=== PATIENT | male | born 1940 | race Caucasian/White ===

== ENCOUNTER 2018-11-24 04:48 | Observation (INO) | payer MEDICARE, BC ==
[2018-11-24] MEDS ORDERED: Nitroglycerin 2% Ointment 1 INCH/1 GM Packet ONE (05:01)
[2018-11-24 05:31] LABS: #Basophils 0.1 thou/uL (0.0-0.2); #Eosinphils 0.2 thou/uL (0.0-0.7); #Lymphocytes 1.9 thou/uL (1.20-3.40); #Monocytes 0.8 thou/uL (0.11-0.59); #Neutrophils 4.3 thou/uL (1.40-6.50); %Basophils 1.2 % (0.0-1.0); %Eosinophils 2.5 % (0.0-10.0); %Lymphocytes 26.2 % (21.0-51.0); %Monocytes 10.6 % (0.0-10.0); %Neutrophils 59.5 % (42.0-75.0); Hemoglobin 12.3 g/dL (14.0-18.0); Mean Corpuscular HGB CONC 32.1 g/dL (32.0-36.0); Mean Corpuscular Hemoglobin 31.6 pg (27.0-31.0); Mean Corpuscular Volume 98.2 fL (78.0-98.0); Mean Platelet Volume 6.9 fL (7.4-10.4); Platelet Count 235 thou/uL (130-400); RBC Distribution Width 11.5 % (11.5-14.5); Red Blood Cell (RBC) Count 3.89 mill/uL (4.70-6.10); White Blood Cell (WBC) Count 7.2 thou/uL (4.8-10.8)
[2018-11-24 05:55] LABS: ALT (SGPT) 22 U/L (8-55); AST (SGOT) 20 U/L (5-34); Albumin 4.3 g/dL (3.4-4.8); Alkaline Phosphatase 88 U/L (40-150); Anion Gap 12 mmol/L (10-20); BUN (Urea Nitrogen) 25 mg/dL (8.4-25.7); Bilirubin, Total 0.4 mg/dL (0.2-1.2); CK (CPK) 85 U/L (30-200); Calc. Creatinine Clearance 0 mL/min (70-130); Calcium 9.1 mg/dL (7.8-10.44); Carbon Dioxide 24 mmol/L (23-31); Chloride 107 mmol/L (98-107); Estimated GFR-MDRD 89; Globulin 2.7 g/dL (2.4-3.5); Glucose 124 mg/dL (83-110); Lipase 40 U/L (8-78); Potassium 3.9 mmol/L (3.5-5.1); Sodium 139 mmol/L (136-145)
[2018-11-24 07:15] VITALS: BMI 28.3
[2018-11-24] MEDS ORDERED: Ondansetron PF 4 MG/2 ML Vial IVP PRN (07:20)
[2018-11-24] MEDS ORDERED: Ondansetron ODT 4 MG TAB SL PRN (07:20)
[2018-11-24] MEDS ORDERED: Acetaminophen 325 MG TAB PO PRN (07:20)
--- NOTE | 2018-11-24 08:15 | RAD ---
FExam: Chest one view History: chest pain x30 minutes Comparison: 02/03/2004 FINDINGS: Cardiac silhouette: Normal Pulmonary vessels: Normal Costophrenic angles: Clear LUNGS: No masses or consolidation. Pneumothorax: None Osseous abnormalities: None IMPRESSION: No acute cardiopulmonary process.
[2018-11-24] MEDS ORDERED: CARVEDILOL PHOSPHATE 20 MG PO SCH (09:00)
[2018-11-24] MEDS ORDERED: Aspirin Chewable 81 MG TAB PO SCH (09:00)
[2018-11-24] MEDS ORDERED: Lisinopril 20 MG TAB PO SCH (09:00)
[2018-11-24] MEDS ORDERED: Non-Formulary Item 1 EACH (Ezetimibe/Simvastatin [Vytorin] 1 TABLET) PO SCH (09:00)
[2018-11-24] MEDS ORDERED: Aspirin 325 mg Enteric Coated Tablet PO SCH (09:00)
[2018-11-24] MEDS ORDERED: Ezetimibe 10 MG TAB PO SCH (09:00)
[2018-11-24] MEDS ORDERED: Aspirin 81 mg Enteric Coated Tablet PO SCH (09:00)
[2018-11-24] MEDS ORDERED: Carvedilol 6.25 MG TAB PO SCH (09:00)
[2018-11-24] MEDS ORDERED: Simvastatin 40 MG TAB PO SCH (09:00)
[2018-11-24 09:26] LABS: Troponin I Less than 0.010 ng/mL (< 0.028)
--- NOTE | 2018-11-24 10:42 | HP ---
PRIMARY CARE PROVIDER: Dr. Nicanor Gil. CHIEF COMPLAINT: Chest pain. HISTORY OF PRESENT ILLNESS: Mr. Metzger is a pleasant 78-year-old gentleman who was seen at [facility] on November 24, 2018. He reports that he woke up from sleep this morning, sweating a lot. Then, he tried to stand up. At that time, he developed left-sided chest pain. He describes it as stabbing, 7/10 at its worst, nonradiating, accompanied by diaphoresis, accompanied by nausea and shortness of breath, no known aggravating or relieving factors. The chest pain resolved after 2 hours. He reports that his blood pressure was high at that time. REVIEW OF SYSTEMS: All other systems reviewed and found to be negative. PAST MEDICAL HISTORY: Coronary artery disease, myocardial infarction 14 years ago, and hypertension. PAST SURGICAL HISTORY: Partial right nephrectomy and appendectomy. SOCIAL HISTORY: One to two alcoholic drinks a day. No tobacco use or recreational drug use. FAMILY HISTORY: No family history of premature coronary artery disease. ALLERGIES: NO KNOWN DRUG ALLERGIES. CURRENT MEDICATIONS: 1. Aspirin 81 mg daily. 2. Coreg CR 20 mg daily. 3. Lisinopril 20 mg 2 times a day. 4. Vytorin 10/80 one tablet daily. 5. Lorazepam 1 mg daily. PHYSICAL EXAMINATION: GENERAL: Mr. Metzger is awake and alert, not in acute distress. VITAL SIGNS: Blood pressure is 167/71, pulse 57, respiratory rate 20, and oxygen saturation 94% on room air. He is afebrile. EYES: No scleral icterus. No conjunctival pallor. ENT: Moist mucosal membranes. No oropharyngeal erythema or exudates. NECK: Supple, nontender. Trachea is midline. RESPIRATORY: Accessory muscles of breathing are not active. Chest wall movements are symmetric bilaterally. Lungs are clear to auscultation without wheezes, rhonchi, or crepitations. CARDIOVASCULAR: S1 and S2 are heard, regular. Peripheral pulses palpable. No carotid bruit. No pericardial rub. ABDOMEN: Soft, nontender. Bowel sounds heard. No hepatomegaly. No splenomegaly. NEUROLOGIC: Cranial nerves 2 through 12 are intact. MUSCULOSKELETAL: Power is 5/5 in all 4 extremities. SKIN: No rashes or subcutaneous nodules. LYMPHATIC: No cervical lymphadenopathy. PSYCHIATRIC: Normal mood. Normal affect. The patient is oriented to person, place, and time. LABORATORY DATA: Mr. Metzger's labs and investigations were reviewed. I reviewed his electrocardiogram, which shows normal sinus rhythm, no ST changes to suggest an acute coronary syndrome. I also reviewed his chest x-ray, which does not show any pulmonary infiltrates. He has normal white count, macrocytic anemia with hemoglobin 12.3, normal platelet count, D-dimer less than 0.27, and an unremarkable comprehensive metabolic profile. Troponin I is negative x2. Lipase is normal. ASSESSMENT AND PLAN: Mr. Metzger is a pleasant 78-year-old gentleman who was seen at [facility] on November 24, 2018. Problem list includes: 1. Chest pain: Mr. Metzger is presenting with chest pain. Given his medical comorbidities and past cardiac history, he will be admitted to the hospital on observation status for telemetry monitoring and stress test. He reports that he sees a deoiling machine operator in [place]. He also sees Dr. Loja in [place]. He reports having a normal stress test about a year ago. 2. Hypertension: Blood pressure was reportedly high at home. We will resume home medications, monitor vital signs, and titrate antihypertensives as needed. Many thanks for allowing me to participate in Mr. Metzger's care. Please feel free to contact me with any questions or concerns. LEVEL OF RISK: Moderate. LEVEL OF COMPLEXITY: Moderate. Job ID: [id number]
[2018-11-24] MEDS ORDERED: ADENOSINE 60 MG/20 ML VIAL ONE (10:46)
[2018-11-24 13:52] VITALS: BP 148/70; TEMP 98
--- NOTE | 2018-11-24 15:03 | NM ---
CARDIAC SPECT: HISTORY: A 78-year-old male with chest pain, pulmonary artery disease, stent placement, and hypertension. TECHNIQUE: A myocardial perfusion scan was performed using the single-isotope 1-day protocol with Technetium 99m sestamibi. Nine mCi were injected intravenously for the rest exam followed by 30 mCi for the stress study. Pharmacologic stress with adenosine is monitored and interpreted by Aneta Chand PA-C. FINDINGS: There is a small fixed defect in the inferolateral wall. No reversible defects are identified. GATED SPECT LVEF: 66%. WALL MOTION EXAM: No significant wall motion abnormalities are seen. IMPRESSION: No evidence of reversible ischemia. POS: TPC
[2018-11-24] MEDS ORDERED: Lorazepam 1 MG TAB PO SCH (21:00)
--- NOTE | 2018-11-25 02:36 | DIS ---
DATE OF ADMISSION: 11/24/2018 DATE OF DISCHARGE: 11/24/2018 PRIMARY CARE PROVIDER: Dr. Nicanor Gil. DISCHARGE DIAGNOSES: 1. Chest pain. 2. Most likely musculoskeletal etiology for chest pain. HOSPITAL COURSE: Mr. Metzger is a pleasant 78-year-old gentleman who was admitted to [facility] on observation status on 11/24/2018, for chest pain. Please refer to my history and physical note dated 11/24/2018, for further details. Venous thromboembolism was ruled out with negative D-dimer. He also had nuclear stress test, which did not show any evidence of reversible ischemia. He had a small fixed defect in the inferolateral wall. Left ventricular ejection fraction was 66%. No significant wall motion abnormalities were seen. Mr. Metzger's chest pain resolved after admission. He is being discharged home in a stable condition. No change was made to his pre-admission home medications as dictated on my history and physical note dated 11/24/2018. Many thanks for allowing me to participate in your patient's care. Please feel free to contact me with any questions or concerns. DISCHARGE DESTINATION: Home. Job ID: [id number]
== END 2018-11-24 15:54 | disposition home or self-care (01) ==
LOC: ERS 04:48 → 2SW 07:02
PROVIDERS: ADMIT Family Medicine; ATTEND Family Medicine
DX: R07.89 Other chest pain (principal); I25.10 Atherosclerotic heart disease of native coronary artery without angina pectoris; I25.2 Old myocardial infarction; I10 Essential (primary) hypertension; Z79.82 Long term (current) use of aspirin; Z79.899 Other long term (current) drug therapy; Z90.5 Acquired absence of kidney
CPT/HCPCS: 71045; 78452; 80053; 82550; 83690; 84484 ×2; 85025; 85379; 93005; 93017; 99285; A9500; G0378; 36415; J0153; Q0162

== ENCOUNTER 2023-05-01 15:12 | Outpatient (CLI) | payer MEDICARE, BC | END 2023-05-01 15:13 | disposition home or self-care (01) | LOC: BICMAMMO 15:12 | PROVIDERS: ATTEND Internal Medicine Rheumatology | DX: Z13.820 Encounter for screening for osteoporosis (principal); M81.0 Age-related osteoporosis without current pathological fracture; M85.852 Other specified disorders of bone density and structure, left thigh | CPT/HCPCS: 77080 ==